=== PATIENT | female | born 2000 | race Two or more races ===

== ENCOUNTER → 2020-11-02 | Outpatient (CLI) | payer MEDICAID ==
[2020-11-02 12:32] LABS: Basophils # (auto) 0 10 ^3/uL (0-0.2); Basophils % (auto) 0.2 % (0.0-2.0); Eosinophils # (auto) 0.1 10 ^3/uL (0-0.8); Eosinophils % (auto) 0.9 % (0.0-7.0); Hematocrit 28.5 % (36.0-46.0); Hemoglobin 8.8 g/dL (12.2-16.2); Lymphocytes # (auto) 1.6 10 ^3/uL (0.4-5.4); Lymphocytes % (auto) 17.9 % (10.0-50.0); Mean Corpuscular Hgb Conc. 30.8 g/dL (32.0-36.0); Mean Corpuscular Volume 64.9 fL (80.0-100.0); Monocytes # (auto) 0.6 10 ^3/uL (0-1.3); Monocytes % (auto) 6.6 % (0.0-12.0); Neutrophils # (auto) 6.6 10 ^3/uL (1.6-8.6); Neutrophils % (auto) 74.4 % (37.0-80.0); Nucleated Red Blood Cells % 0.2 %; Red Blood Cells 4.39 10^6/uL (4.0-5.20); Red Cell Distribution Width 18.4 % (11.8-14.3); White Blood Cell 8.9 10^3/uL (4.4-10.8)
[2020-11-03 06:06] LABS: RPR Non Reactive (Non Reactive)
== END | disposition home or self-care (01) ==
LOC: LAB 12:04
PROVIDERS: ATTEND Obstetrics & Gynecology
DX: Z34.80 Encounter for supervision of other normal pregnancy, unspecified trimester (principal); Z3A.00 Weeks of gestation of pregnancy not specified
CPT/HCPCS: 36415; 84112; 85025; 86592

== ENCOUNTER 2020-11-19 20:54 | Observation (INO) | payer MEDICAID ==
[~2020-11-19] VITALS: Ht 157.5 cm; Wt 59.0 kg
[2020-11-19] MEDS ORDERED: TERBUTALINE SULFATE 1 MG/ML 1ML VIAL SC ONE (22:00)
[2020-11-19] MEDS ORDERED: PREN-96 OR (22:58)
[2020-11-19] MEDS ORDERED: FERR-20 PO (22:58)
== END 2020-11-19 23:15 | disposition home or self-care (01) ==
LOC: LDRP 20:54
PROVIDERS: ADMIT Obstetrics & Gynecology Obstetrics; ATTEND Obstetrics & Gynecology Obstetrics
DX: O26.893 Other specified pregnancy related conditions, third trimester (principal); R10.9 Unspecified abdominal pain; O62.9 Abnormality of forces of labor, unspecified; Z3A.37 37 weeks gestation of pregnancy
CPT/HCPCS: 59025; 81002; 96372; G0378; G0379; J3105

== ENCOUNTER → 2020-11-28 | Outpatient (CLI) | payer MEDICAID ==
[~2020-11-28] MED LIST: DOCU-94 PO; FERR-20 PO; HYDR-4902 PO; IBU600T PO; IBUP800T27 PO; PREN-96 OR
== END | disposition home or self-care (01) ==
LOC: OB 11:39
PROVIDERS: ATTEND Obstetrics & Gynecology Obstetrics
DX: Z20.822 Contact with and (suspected) exposure to COVID-19 (principal)
CPT/HCPCS: C9803; U0003

== ENCOUNTER 2020-11-30 03:57 | Inpatient (IN) | payer MEDICAID ==
[~2020-11-30] VITALS: Ht 160 cm; Wt 63.5 kg
[2020-11-30] VITALS (18 sets, daily range): BP systolic 87–137; BP diastolic 52–78
[~2020-11-30 03:57] MED LIST changes: -DOCU-94 PO; -HYDR-4902 PO; -IBU600T PO; -IBUP800T27 PO
[2020-11-30] MEDS ORDERED: ceFAZolin 1GM/50ML 50 ML IV ONE (04:45)
[2020-11-30] MEDS ORDERED: LACTATED RINGER'S 1,000 ML IV ONE (04:45)
[2020-11-30] MEDS ORDERED: SODIUM CITR/CITRIC ACID ORAL SOLN 30 ML PO ONE (04:45)
[2020-11-30 05:08] LABS: Basophils # (auto) 0 10 ^3/uL (0-0.2); Basophils % (auto) 0.3 % (0.0-2.0); Eosinophils # (auto) 0 10 ^3/uL (0-0.8); Eosinophils % (auto) 0.9 % (0.0-7.0); Hematocrit 36.7 % (36.0-46.0); Hemoglobin 11.5 g/dL (12.2-16.2); Lymphocytes # (auto) 0.9 10 ^3/uL (0.4-5.4); Lymphocytes % (auto) 17.2 % (10.0-50.0); Mean Corpuscular Hemoglobin 24.4 pg (28.0-32.0); Mean Corpuscular Hgb Conc. 31.5 g/dL (32.0-36.0); Mean Corpuscular Volume 77.6 fL (80.0-100.0); Monocytes # (auto) 0.4 10 ^3/uL (0-1.3); Monocytes % (auto) 7.6 % (0.0-12.0); Neutrophils # (auto) 4.1 10 ^3/uL (1.6-8.6); Red Blood Cells 4.72 10^6/uL (4.0-5.20); White Blood Cell 5.5 10^3/uL (4.4-10.8)
[2020-11-30 05:10] LABS: Red Cell Distribution Width 32.6 % (11.8-14.3)
[2020-11-30 05:16] LABS: Urine Blood Negative /uL (Negative); Urine Specific Gravity 1.012 (1.001-1.035); Urine WBC 4 /hpf (0 - 5)
[2020-11-30 05:17] LABS: Urine Amorphous Crystal FEW /hpf (None Seen); Urine Bacteria FEW /hpf (None Seen)
[2020-11-30 05:22] LABS: Albumin 2.5 g/dL (3.4-5.0); BUN/Creatinine Ratio 12.8; Calcium 8.5 mg/dL (8.5-10.1); Potassium 3.5 mmol/L (3.5-5.1)
[2020-11-30 05:22] LABS: Amphetamine Screen, Urine NEGATIVE (NEGATIVE); Barbiturate Scree,Urine NEGATIVE (NEGATIVE); Benzodiazephine Screen, Urine NEGATIVE (NEGATIVE); Cannabinoid Screen, Urine NEGATIVE (NEGATIVE); Cocaine Screen, Urine NEGATIVE (NEGATIVE); Opiate Scree,Urine NEGATIVE (NEGATIVE); Phencyclidine Screen, Urine NEGATIVE (NEGATIVE)
[2020-11-30 05:24] LABS: Bilirubin, Total 0.3 mg/dL (0.2-1.0); Total Protein 6.9 g/dL (6.4-8.2)
[2020-11-30 05:25] LABS: INR 0.89 (0.9-1.15); Partial Thromboplastin Time 24.4 sec (23.6-33.0)
[2020-11-30 05:31] LABS: Alcohol, Urine < 3.0 mg/dL (0-10)
[2020-11-30] MEDS: LACTATED RINGER'S 1,000 ML IV SCH ×3 (06:44→19:28)
[2020-11-30] MEDS ORDERED: BUPIVACAINE 0.5% P/F INJ 10 ML VIAL ONE (06:57)
[2020-11-30] MEDS ORDERED: ePHEDrine SULFATE 50 MG/ML AMP ONE (06:59)
[2020-11-30] MEDS ORDERED: MORPHINE SULF PF 2 MG/2 ML SYRG ONE (06:59)
[2020-11-30] MEDS ORDERED: fentaNYL CITRATE 100 MCG/2 ML VL ONE (06:59)
[2020-11-30] MEDS ORDERED: oxyTOCIN 10 UNIT/ML 10ML VIAL ONE (06:59)
[2020-11-30] MEDS ORDERED: ONDANSETRON HCL 4 MG/2 ML VIAL ONE (06:59)
[2020-11-30] MEDS ORDERED: GLYCOPYRROLATE 0.2 MG/ML 1ML VIAL ONE (06:59)
[2020-11-30] MEDS ORDERED: PHENYLEPHRINE HCL 10 MG/ML VL ONE (06:59)
[2020-11-30] MEDS ORDERED: MORPHINE SULFATE 4 MG/ML SYR/VIAL IV PRN (07:30)
[2020-11-30] MEDS ORDERED: ceFAZolin 1GM/50ML 50 ML IV SCH (07:30)
[2020-11-30] MEDS ORDERED: ONDANSETRON HCL 4 MG/2 ML VIAL IV PRN ×3 (07:30→08:30)
[2020-11-30] MEDS ORDERED: LACT. RINGERS/OXYTOCIN 20UNITS 1,000 ML IV ONE (07:30)
[2020-11-30] MEDS ORDERED: MIDAZOLAM HCL 2MG/2ML 2ml VIAL (1mg/ml) ONE (07:41)
[2020-11-30] MEDS ORDERED: DexAMETHasone SOD PHOS 10MG/1ML VIAL INJ IV PRN (08:30)
[2020-11-30] MEDS ORDERED: NALOXONE HCL 0.4 MG/ML VIAL IV PRN (08:30)
[2020-11-30] MEDS ORDERED: KETOROLAC TROMETH 30 MG/ML 1ML VIAL IV PRN (08:30)
[2020-11-30] MEDS ORDERED: diphenhdrAMINE HCL 50 MG/1 ML VL IV PRN (08:30)
[2020-11-30] MEDS ORDERED: DOCU-94 PO (13:19)
[2020-11-30] MEDS ORDERED: HYDR-4902 PO (13:19)
[2020-11-30] MEDS ORDERED: IBU600T PO (13:19)
[2020-11-30] MEDS ORDERED: IBUP800T27 PO (13:32)
[2020-11-30] MEDS: ceFAZolin 1GM/50ML 50 ML IV SCH (16:44)
[2020-11-30] MEDS ORDERED: ACETAMINOPHEN IV 1000 MG/100ML (10MG/ML) IV PRN (17:00)
[2020-11-30 21:22] LABS: Eosinophils # (auto) 0.1 10 ^3/uL (0-0.8); Eosinophils % (auto) 0.6 % (0.0-7.0); Hemoglobin 11.6 g/dL (12.2-16.2)
[2020-11-30 21:23] LABS: Basophils # (auto) 0.1 10 ^3/uL (0-0.2); Basophils % (auto) 0.5 % (0.0-2.0); Lymphocytes # (auto) 1.7 10 ^3/uL (0.4-5.4); Lymphocytes % (auto) 16.5 % (10.0-50.0); Mean Corpuscular Hemoglobin 25.1 pg (28.0-32.0); Mean Corpuscular Hgb Conc. 32.3 g/dL (32.0-36.0); Mean Corpuscular Volume 77.8 fL (80.0-100.0); Monocytes # (auto) 0.7 10 ^3/uL (0-1.3); Monocytes % (auto) 6.9 % (0.0-12.0); Neutrophils # (auto) 7.8 10 ^3/uL (1.6-8.6); Neutrophils % (auto) 75.5 % (37.0-80.0); Red Blood Cells 4.63 10^6/uL (4.0-5.20); White Blood Cell 10.3 10^3/uL (4.4-10.8)
[2020-11-30 21:29] LABS: Red Cell Distribution Width 32.1 % (11.8-14.3)
[2020-12-01] VITALS (12 sets, daily range): BP systolic 90–113; BP diastolic 41–76
[2020-12-01] MEDS: ceFAZolin 1GM/50ML 50 ML IV SCH ×2 (00:38→09:43)
[2020-12-01] MEDS ORDERED: HYDROmorphone HCL 2 MG/ML VL IV PRN ×2 (02:15→03:15)
[2020-12-01] MEDS: LACTATED RINGER'S 1,000 ML IV SCH (03:07)
[2020-12-01] MEDS ORDERED: ACETAMINOPHEN IV 1000 MG/100ML (10MG/ML) IV PRN (03:15)
[2020-12-01 06:24] LABS: Basophils # (auto) 0 10 ^3/uL (0-0.2); Hemoglobin 11.1 g/dL (12.2-16.2)
[2020-12-01 06:27] LABS: Basophils % (auto) 0.7 % (0.0-2.0); Eosinophils # (auto) 0.1 10 ^3/uL (0-0.8); Hematocrit 33.9 % (36.0-46.0); Lymphocytes # (auto) 1.6 10 ^3/uL (0.4-5.4); Lymphocytes % (auto) 22.3 % (10.0-50.0); Mean Corpuscular Hemoglobin 25.4 pg (28.0-32.0); Mean Corpuscular Hgb Conc. 32.8 g/dL (32.0-36.0); Mean Corpuscular Volume 77.6 fL (80.0-100.0); Monocytes # (auto) 0.5 10 ^3/uL (0-1.3); Monocytes % (auto) 7.2 % (0.0-12.0); Neutrophils % (auto) 68.8 % (37.0-80.0); Nucleated Red Blood Cells % 0.1 %; Red Blood Cells 4.36 10^6/uL (4.0-5.20); White Blood Cell 7.2 10^3/uL (4.4-10.8)
[2020-12-01 06:35] LABS: Red Cell Distribution Width 32.3 % (11.8-14.3)
[2020-12-01 07:07] LABS: RPR Non Reactive (Non Reactive)
[2020-12-01] MEDS ORDERED: ceFAZolin 1GM/50ML 50 ML IV SCH (09:00)
[2020-12-01] MEDS ORDERED: HYDROcodone-ACET 5/325MG TAB PO PRN (09:30)
[2020-12-01] MEDS ORDERED: BISACODYL 10 MG RECT SUPP PR PRN (09:30)
[2020-12-01] MEDS: DOCUSATE SOD 100 MG CAP PO SCH ×2 (10:36→22:27)
[2020-12-01] MEDS: DOCUSATE CALCIUM 240 MG CAP PO SCH (10:36)
[2020-12-01] MEDS: SIMETHICONE 80 MG CHEWABLE TABLET PO SCH ×3 (12:31→22:27)
[2020-12-01] MEDS: HYDROcodone-ACET 5/325MG TAB PO PRN (17:24)
[2020-12-01] MEDS: IBUPROFEN 800 MG TAB PO PRN (22:52)
[2020-12-02 03:00] VITALS: BP 106/63
[2020-12-02] MEDS: SIMETHICONE 80 MG CHEWABLE TABLET PO SCH ×4 (05:33→22:11)
[2020-12-02] MEDS: HYDROcodone-ACET 5/325MG TAB PO PRN ×2 (05:47→22:11)
[2020-12-02 07:00] VITALS: BP 98/57
[2020-12-02] MEDS: DOCUSATE SOD 100 MG CAP PO SCH ×2 (10:23→22:11)
[2020-12-02] MEDS: DOCUSATE CALCIUM 240 MG CAP PO SCH (10:23)
[2020-12-02] MEDS: IBUPROFEN 800 MG TAB PO PRN (10:23)
[2020-12-02 11:00] VITALS: BP 99/58
[2020-12-02 15:00] VITALS: BP 97/57
[2020-12-02 18:30] VITALS: BP 107/74
[2020-12-02 23:00] VITALS: BP 99/69
[2020-12-03 03:00] VITALS: BP 107/66
[2020-12-03] MEDS: IBUPROFEN 800 MG TAB PO PRN ×2 (05:17→12:53)
[2020-12-03] MEDS: SIMETHICONE 80 MG CHEWABLE TABLET PO SCH ×2 (05:34→11:12)
[2020-12-03 07:00] VITALS: BP 103/67
[2020-12-03] MEDS: HYDROcodone-ACET 5/325MG TAB PO PRN (07:28)
[2020-12-03 11:00] VITALS: BP 100/66
[2020-12-03] MEDS: DOCUSATE CALCIUM 240 MG CAP PO SCH (11:12)
[2020-12-03] MEDS: DOCUSATE SOD 100 MG CAP PO SCH (11:12)
[2020-12-03 13:30] VITALS: BP 102/56
== END 2020-12-03 13:47 | disposition home or self-care (01) | DRG 540 ==
LOC: LDRP 03:57
PROVIDERS: ADMIT Obstetrics & Gynecology; ATTEND Obstetrics & Gynecology
PROC: 10D00Z1 Extraction of Products of Conception, Low, Open Approach (ICD-10-PCS; principal; 2020-11-30 07:18)
DX: O34.211 Maternal care for low transverse scar from previous cesarean delivery (principal); Z37.0 Single live birth; Z3A.39 39 weeks gestation of pregnancy
CPT/HCPCS: 36415; 59025; 80053; 80307; 81001; 85025; 85610; 85730; 86592; 86850; 86900; 86901; 94760; 94762; 96360; 96361; 96365; 96366; 96374; G0378; J0131; J0690; J2250; J2405; J2590; J3490

== ENCOUNTER → 2021-01-11 | Outpatient (CLI) | payer MEDICAID ==
[~2021-01-11] MED LIST changes: +DOCU-94 PO; +HYDR-4902 PO; +IBU600T PO; +IBUP800T27 PO
[2021-01-11 11:15] LABS: Basophils # (auto) 0 10 ^3/uL (0-0.2); Eosinophils # (auto) 0.2 10 ^3/uL (0-0.8); Hemoglobin 13.8 g/dL (12.2-16.2); Lymphocytes # (auto) 1.9 10 ^3/uL (0.4-5.4); Mean Corpuscular Hemoglobin 26.5 pg (28.0-32.0); Monocytes # (auto) 0.4 10 ^3/uL (0-1.3); Neutrophils # (auto) 2.7 10 ^3/uL (1.6-8.6); Nucleated Red Blood Cells % 0.1 %; White Blood Cell 5.3 10^3/uL (4.4-10.8)
[2021-01-11 11:16] LABS: Basophils % (auto) 0.6 % (0.0-2.0); Eosinophils % (auto) 4.2 % (0.0-7.0); Hematocrit 42.3 % (36.0-46.0); Lymphocytes % (auto) 36.4 % (10.0-50.0); Mean Corpuscular Hgb Conc. 32.7 g/dL (32.0-36.0); Monocytes % (auto) 7.7 % (0.0-12.0); Neutrophils % (auto) 51.1 % (37.0-80.0); Red Blood Cells 5.22 10^6/uL (4.0-5.20)
[2021-01-11 11:24] LABS: Red Cell Distribution Width 22.6 % (11.8-14.3)
== END | disposition home or self-care (01) ==
LOC: LAB 10:38
PROVIDERS: ATTEND Obstetrics & Gynecology
DX: D64.1 Secondary sideroblastic anemia due to disease (principal)
CPT/HCPCS: 36415; 85025